=== PATIENT | female | born 1975 | race Hispanic/Latino ===

== ENCOUNTER 2018-07-27 13:43 | Outpatient (CLI) | payer OTHER | END 2018-07-27 13:44 | disposition home or self-care (01) | LOC: BICMAMMO 13:43 | PROVIDERS: ATTEND Obstetrics & Gynecology | DX: Z12.31 Encounter for screening mammogram for malignant neoplasm of breast (principal) | CPT/HCPCS: 77063; 77067 ==

== ENCOUNTER 2019-06-05 08:04 | Outpatient (CLI) | payer OTHER ==
--- NOTE | 2019-06-05 08:20 | RAD ---
XR Toe(s) Rt Min 2 View HISTORY: Right great toe injury COMPARISON: None. FINDINGS: There are no signs of fracture or dislocation. IMPRESSION: No evidence of fracture.
== END 2019-06-05 08:05 | disposition home or self-care (01) ==
LOC: BICRAD 08:04
PROVIDERS: ATTEND Nurse Practitioner Family
DX: S99.921A Unspecified injury of right foot, initial encounter (principal)

== ENCOUNTER 2019-09-07 12:12 | Outpatient (CLI) | payer OTHER ==
--- NOTE | 2019-09-13 13:27 | MMO ---
Bilateral MAMMO Bilat Screen [facility]. CLINICAL HISTORY: Patient is 44 years old and is seen for screening. The patient has no family history of breast cancer. The patient has no personal history of cancer. VIEWS: The views performed were: bilateral craniocaudal with tomosynthesis and bilateral mediolateral oblique with tomosynthesis. FILMS COMPARED: The present examination has been compared to prior imaging studies performed at [facility] on 09/02/2016, and at [facility] on 07/27/2018. This study has been interpreted with the assistance of computer-aided detection. MAMMOGRAM FINDINGS: The breasts are heterogeneously dense, which could obscure a lesion on mammography. There are no suspicious masses, suspicious calcifications, or new areas of architectural distortion. IMPRESSION: THERE IS NO MAMMOGRAPHIC EVIDENCE OF MALIGNANCY. A ROUTINE FOLLOW-UP MAMMOGRAM IN 1 YEAR IS RECOMMENDED. THE RESULTS OF THIS EXAM WERE SENT TO THE PATIENT. ACR BI-RADS Category 1 - Negative MAMMOGRAPHY NOTE: 1. A negative mammogram report should not delay a biopsy if a dominant of clinically suspicious mass is present. 2. Approximately 10% to 15% of breast cancers are not detected by mammography. 3. Adenosis and dense breasts may obscure an underlying neoplasm. Reported by: AVELINO FRENCH MD Electonically Signed: [id number]
== END 2019-09-07 12:13 | disposition home or self-care (01) ==
LOC: BICMAMMO 12:12
PROVIDERS: ATTEND Obstetrics & Gynecology
DX: Z12.31 Encounter for screening mammogram for malignant neoplasm of breast (principal)
CPT/HCPCS: 77063; 77067

== ENCOUNTER 2020-09-25 15:34 | Outpatient (CLI) | payer OTHER ==
--- NOTE | 2020-09-25 16:15 | MMO ---
Bilateral MAMMO Bilat Screen [facility]. CLINICAL HISTORY: Patient is 45 years old and is seen for screening. The patient has no family history of breast cancer. The patient has no personal history of cancer. VIEWS: The views performed were: bilateral exaggerated craniocaudal; bilateral craniocaudal with tomosynthesis; bilateral mediolateral oblique with tomosynthesis; and left craniocaudal. FILMS COMPARED: The present examination has been compared to prior imaging studies performed at [facility] on 09/02/2016, and at [facility] on 07/27/2018 and 09/07/2019. This study has been interpreted with the assistance of computer-aided detection. MAMMOGRAM FINDINGS: The breasts are heterogeneously dense, which could obscure a lesion on mammography. There are no suspicious masses, suspicious calcifications, or new areas of architectural distortion. IMPRESSION: THERE IS NO MAMMOGRAPHIC EVIDENCE OF MALIGNANCY. A ROUTINE FOLLOW-UP MAMMOGRAM IN 1 YEAR IS RECOMMENDED. THE RESULTS OF THIS EXAM WERE SENT TO THE PATIENT. ACR BI-RADS Category 1 - Negative MAMMOGRAPHY NOTE: 1. A negative mammogram report should not delay a biopsy if a dominant of clinically suspicious mass is present. 2. Approximately 10% to 15% of breast cancers are not detected by mammography. 3. Adenosis and dense breasts may obscure an underlying neoplasm. Reported by: AVELINO FRENCH MD Electonically Signed: [id number]
== END 2020-09-25 15:35 | disposition home or self-care (01) ==
LOC: BICMAMMO 15:34
PROVIDERS: ATTEND Obstetrics & Gynecology
DX: Z12.31 Encounter for screening mammogram for malignant neoplasm of breast (principal)
CPT/HCPCS: 77063; 77067

== ENCOUNTER 2021-06-10 14:39 | Outpatient (CLI) | payer OTHER | END 2021-06-10 14:40 | disposition home or self-care (01) | LOC: DTY/OP 14:39 | PROVIDERS: ATTEND Surgery | DX: E66.01 Morbid (severe) obesity due to excess calories (principal) | CPT/HCPCS: 97802 ==

== ENCOUNTER 2021-06-12 13:36 | Outpatient (CLI) | payer OTHER | END 2021-06-12 13:37 | disposition home or self-care (01) | LOC: DTY/OP 13:36 | PROVIDERS: ATTEND Surgery | DX: E66.01 Morbid (severe) obesity due to excess calories (principal) | CPT/HCPCS: 97802 ==

== ENCOUNTER 2021-06-15 09:51 | Outpatient (CLI) | payer OTHER | END 2021-06-15 09:52 | disposition home or self-care (01) | LOC: DTY/OP 09:51 | PROVIDERS: ATTEND Surgery | DX: E66.01 Morbid (severe) obesity due to excess calories (principal) | CPT/HCPCS: 97802 ==

== ENCOUNTER 2021-06-17 11:54 | Outpatient (CLI) | payer OTHER | END 2021-06-17 11:55 | disposition home or self-care (01) | LOC: DTY/OP 11:54 | PROVIDERS: ATTEND Surgery | DX: E66.01 Morbid (severe) obesity due to excess calories (principal); Z68.37 Body mass index [BMI] 37.0-37.9, adult | CPT/HCPCS: 97802 ==

== ENCOUNTER 2021-06-19 14:13 | Outpatient (CLI) | payer OTHER | END 2021-06-19 14:14 | disposition home or self-care (01) | LOC: DTY/OP 14:13 | PROVIDERS: ATTEND Surgery | DX: E66.01 Morbid (severe) obesity due to excess calories (principal) | CPT/HCPCS: 97802 ==

== ENCOUNTER 2021-06-22 12:00 | Outpatient (CLI) | payer OTHER | END 2021-06-22 12:01 | disposition home or self-care (01) | LOC: DTY/OP 12:00 | PROVIDERS: ATTEND Surgery | DX: E66.01 Morbid (severe) obesity due to excess calories (principal) | CPT/HCPCS: 97802 ==

== ENCOUNTER 2021-06-24 11:57 | Outpatient (CLI) | payer OTHER | END 2021-06-24 11:58 | disposition home or self-care (01) | LOC: DTY/OP 11:57 | PROVIDERS: ATTEND Surgery | DX: E66.01 Morbid (severe) obesity due to excess calories (principal) | CPT/HCPCS: 97802 ==

== ENCOUNTER 2021-06-29 12:01 | Outpatient (CLI) | payer OTHER | END 2021-06-29 12:02 | disposition home or self-care (01) | LOC: DTY/OP 12:01 | PROVIDERS: ATTEND Surgery | DX: E66.01 Morbid (severe) obesity due to excess calories (principal) | CPT/HCPCS: 97802 ==

== ENCOUNTER 2021-07-01 15:35 | Outpatient (CLI) | payer OTHER | END 2021-07-01 15:36 | disposition home or self-care (01) | LOC: DTY/OP 15:35 | PROVIDERS: ATTEND Surgery | DX: E66.01 Morbid (severe) obesity due to excess calories (principal) | CPT/HCPCS: 97802 ==

== ENCOUNTER 2021-07-03 12:01 | Outpatient (CLI) | payer OTHER | END 2021-07-03 12:02 | disposition home or self-care (01) | LOC: DTY/OP 12:01 | PROVIDERS: ATTEND Surgery | DX: E66.01 Morbid (severe) obesity due to excess calories (principal) | CPT/HCPCS: 97802 ==

== ENCOUNTER 2021-07-06 12:08 | Outpatient (CLI) | payer OTHER | END 2021-07-06 12:09 | disposition home or self-care (01) | LOC: DTY/OP 12:08 | PROVIDERS: ATTEND Surgery | DX: E66.01 Morbid (severe) obesity due to excess calories (principal) | CPT/HCPCS: 97802 ==

== ENCOUNTER 2021-07-08 12:04 | Outpatient (CLI) | payer OTHER | END 2021-07-08 12:05 | disposition home or self-care (01) | LOC: DTY/OP 12:04 | PROVIDERS: ATTEND Surgery | DX: E66.01 Morbid (severe) obesity due to excess calories (principal); Z68.37 Body mass index [BMI] 37.0-37.9, adult | CPT/HCPCS: 97802 ==

== ENCOUNTER 2021-07-27 17:34 | Outpatient (CLI) | payer OTHER ==
[2021-07-27 18:56] LABS: #Basophils 0.1 10x3/uL (0.0-0.2); #Eosinphils 0.3 10x3/uL (0.0-0.5); #Monocytes 0.9 10x3/uL (0.0-1.1); #Neutrophils 7.3 10x3/uL (1.5-8.4); %Basophils 0.7 % (0.0-2.0); %Eosinophils 2.5 % (0.0-6.0); %Lymphocytes 35.4 % (18.0-47.0); %Monocytes 6.9 % (0.0-10.0); %Neutrophils 54.1 % (40.0-75.0); Hemoglobin 13.9 g/dL (12.0-15.5); Mean Corpuscular HGB CONC 33.1 g/dL (32.0-36.0); Mean Corpuscular Hemoglobin 32.6 pg (27.0-33.0); Mean Corpuscular Volume 98.4 fl (81.6-98.3); Mean Platelet Volume 10.8 fl (7.4-10.4); Platelet Count 429 10x3/uL (150-450); RBC Distribution Width 12.7 % (11.5-14.5); Red Blood Cell (RBC) Count 4.27 10x6/uL (3.90-5.03); White Blood Cell (WBC) Count 13.4 10x3/uL (3.5-10.5)
[2021-07-27 19:24] LABS: ALT (SGPT) 42 U/L (8-55); AST (SGOT) 44 U/L (5-34); Albumin 4.7 g/dL (3.5-5.0); Alkaline Phosphatase 97 U/L (40-110); Anion Gap 13 mmol/L (10-20); BUN (Urea Nitrogen) 13 mg/dL (7.0-18.7); Calc. Creatinine Clearance 0 mL/min (70-130); Calcium 9.6 mg/dL (7.8-10.44); Carbon Dioxide 26 mmol/L (22-29); Chloride 100 mmol/L (98-107); Globulin 3.3 g/dL (2.4-3.5); Glucose 95 mg/dL (70-105); Potassium 3.3 mmol/L (3.5-5.1); Sodium 136 mmol/L (136-145)
[2021-07-28 12:40] LABS: Hemoglobin A1c 5.4 % (4.0-6.0)
[2021-07-29 13:32] LABS: SARS-CoV-2 PCR by NAA DETECTED (NotDetected)
== END 2021-07-27 17:35 | disposition home or self-care (01) ==
LOC: LABBT 17:34
PROVIDERS: ATTEND Surgery
DX: Z01.818 Encounter for other preprocedural examination (principal); Z20.822 Contact with and (suspected) exposure to COVID-19; E66.01 Morbid (severe) obesity due to excess calories
CPT/HCPCS: 71046; 80053; 83036; 85025; 93005; 93010; U0003; U0005

== ENCOUNTER 2021-07-27 17:45 | Inpatient (IN) | payer BC, OTHER ==
[2021-07-27 16:03] VITALS: BMI 36.7
[2021-08-27] MEDS ORDERED: HYDROmorphone 2 MG/ML VIAL ONE (06:19)
[2021-08-27] MEDS ORDERED: Midazolam HCl 2 mg/2 ml Vial ONE (06:19)
[2021-08-27] MEDS ORDERED: Phenylephrine 10 MG/ML VIAL ONE (06:19)
[2021-08-27] MEDS ORDERED: Sodium Chloride 0.9% 10 ML ONE (06:19)
[2021-08-27] MEDS ORDERED: Fentanyl 100 MCG/2 ML VIAL ONE ×3 (06:19→10:26)
[2021-08-27] MEDS ORDERED: Xylocaine 1% w/ Epi 1:100K 10 ML VIAL ONE (06:35)
[2021-08-27] MEDS ORDERED: Bupivacaine PF 0.5% 30 ML VIAL ONE (06:35)
[2021-08-27] MEDS ORDERED: Heparin 5,000 UNITS/ML VIAL ONE (06:50)
[2021-08-27] MEDS ORDERED: Bupivacaine 0.25% HCL 30 ML VIAL ONE (07:05)
[2021-08-27] MEDS ORDERED: Famotidine/PF 20 mg/2ml Vial ONE (07:12)
[2021-08-27] MEDS ORDERED: Lidocaine 1% MPF 2 ML VIAL ONE (07:20)
[2021-08-27] MEDS ORDERED: ceFAZolin 2 GM/Dextrose 50 ML IVPB ONE (07:25)
[2021-08-27] MEDS ORDERED: Glycopyrrolate 0.2 MG/ML 5 ML SYRINGE ONE (07:43)
[2021-08-27] MEDS ORDERED: Metoclopramide HCl 10 MG/2 ML VIAL ONE (07:43)
[2021-08-27] MEDS ORDERED: Dexamethasone 20 MG/5 ML VIAL ONE (07:43)
[2021-08-27] MEDS ORDERED: Ketorolac Tromethamine 30 MG/ML VIAL ONE (07:43)
[2021-08-27] MEDS ORDERED: PHENYLEPHRINE-NS 100 MCG/ML 10 ML SYRINGE ONE (07:43)
[2021-08-27] MEDS ORDERED: diphenhydrAMINE 50 MG/ML VIAL ONE (07:43)
[2021-08-27] MEDS ORDERED: PROPOFOL 200 MG/20 ML VIAL ONE (07:43)
[2021-08-27] MEDS ORDERED: Rocuronium Bromide 10 MG/ML (10ML VIAL) ONE (07:43)
[2021-08-27] MEDS ORDERED: Lidocaine 1% PF 5 ML VIAL ONE (07:43)
[2021-08-27] MEDS ORDERED: Ondansetron PF 4 MG/2 ML Vial ONE (07:43)
[2021-08-27] MEDS ORDERED: diphenhydrAMINE 50 MG/ML VIAL IVP PRN (09:02)
[2021-08-27] MEDS ORDERED: Dextrose 5% in Water 1,000 ML IV PRN (09:02)
[2021-08-27] MEDS ORDERED: Hydrocodone-Acetamin 15 ML UDCUP PO PRN (09:02)
[2021-08-27] MEDS ORDERED: Promethazine HCl 25 MG/ML VIAL IM PRN ×2 (09:02→09:12)
[2021-08-27] MEDS ORDERED: hydrALAZINE 20 MG/ML VIAL SLOW IVP PRN (09:02)
[2021-08-27] MEDS ORDERED: Ondansetron PF 4 MG/2 ML Vial IVP PRN (09:02)
[2021-08-27] MEDS ORDERED: Dextrose 50% Abboject 50 ML SYRINGE SLOW IVP PRN (09:02)
[2021-08-27] MEDS ORDERED: HYDROmorphone 2 MG/ML VIAL SLOW IVP PRN (09:12)
[2021-08-27] MEDS ORDERED: Promethazine HCl 25 MG/ML VIAL IVPB PRN (09:12)
[2021-08-27] MEDS ORDERED: Ondansetron HCl/PF 4 MG/2 ML Vial IVP PRN (09:12)
[2021-08-27] MEDS ORDERED: Meperidine HCl/PF 25 MG/ML VIAL SLOW IVP PRN (09:12)
[2021-08-27] MEDS ORDERED: Morphine Sulfate 100 MG in Dextrose 5% in Water 98 ML IV SCH (09:30)
[2021-08-27] MEDS ORDERED: diphenhydrAMINE 25 MG CAP PO PRN (09:30)
[2021-08-27] MEDS ORDERED: diphenhydrAMINE 50 MG/ML VIAL IM/IV PRN (09:30)
[2021-08-27] MEDS ORDERED: Naloxone HCl 0.4 mg/ml Vial IV PRN (09:30)
[2021-08-27] MEDS ORDERED: Promethazine HCl 25 MG/ML VIAL ONE (10:13)
[2021-08-27] MEDS ORDERED: Ketorolac Tromethamine 30 MG/ML VIAL IVP SCH (12:00)
[2021-08-27] MEDS: D5 1/2 NS w/20 mEq KCL 1,000 ML IV SCH ×3 (14:34→20:24)
[2021-08-27] MEDS: ceFAZolin 2 GM/Dextrose 50 ML 2 GM in Premix Bag 1 BAG IVPB SCH ×2 (14:50→20:25)
[2021-08-27] MEDS: Ondansetron PF 4 MG/2 ML Vial IVP PRN (16:37)
[2021-08-28] MEDS ORDERED: Hydrocodone-Acetamin 15 ML UDCUP PO PRN (05:50)
[2021-08-28 05:59] VITALS: TEMP 98.6
[2021-08-28 06:06] LABS: Hemoglobin 13.7 g/dL (12.0-16.0); Mean Corpuscular HGB CONC 33.1 g/dL (32.0-36.0); Mean Corpuscular Hemoglobin 33.2 pg (27.0-31.0); Platelet Count 340 thou/uL (130-400); RBC Distribution Width 11.3 % (11.5-14.5); Red Blood Cell (RBC) Count 4.12 mill/uL (4.20-5.40); White Blood Cell (WBC) Count 21.5 thou/uL (4.8-10.8)
[2021-08-28 06:07] LABS: Mean Platelet Volume 7.6 fL (7.4-10.4)
[2021-08-28 06:21] LABS: Anion Gap 15 mmol/L (10-20); BUN (Urea Nitrogen) 7 mg/dL (7.0-18.7); Calc. Creatinine Clearance 145 mL/min (70-130); Calcium 8.5 mg/dL (7.8-10.44); Carbon Dioxide 21 mmol/L (22-29); Chloride 103 mmol/L (98-107); Glucose 104 mg/dL (70-105); Potassium 3.4 mmol/L (3.5-5.1); Sodium 136 mmol/L (136-145)
[2021-08-28 06:26] LABS: Band 4 % (5-11); Lymphocytes 19 % (21-51); MDiff Complete? YES; Monocytes 7 % (0-10); Neutrophil 68 % (42-75); Reactive Lymphocytes 2 % (0-10)
[2021-08-28 08:06] VITALS: BP 120/77
[2021-08-28] MEDS: Ondansetron PF 4 MG/2 ML Vial IVP PRN (08:17)
[2021-08-28] MEDS: D5 1/2 NS w/20 mEq KCL 1,000 ML IV SCH (08:23)
[2021-08-28] MEDS ORDERED: Enoxaparin Sodium 40 MG/0.4 ML SYRINGE SC SCH (09:00)
[2021-08-28] MEDS ORDERED: Pantoprazole 40 MG VIAL IVP SCH (09:00)
== END 2021-08-28 11:20 | disposition home or self-care (01) | DRG 621 ==
LOC: SURG A 08-27 06:04 → SJJU 08-27 12:44
PROVIDERS: ADMIT Surgery; ATTEND Surgery
PROC: 0DB64Z3 Excision of Stomach, Percutaneous Endoscopic Approach, Vertical (ICD-10-PCS; principal; 2021-08-27)
DX: E66.01 Morbid (severe) obesity due to excess calories (principal); K66.0 Peritoneal adhesions (postprocedural) (postinfection); Z98.51 Tubal ligation status; Z90.49 Acquired absence of other specified parts of digestive tract; Z90.710 Acquired absence of both cervix and uterus; Z79.899 Other long term (current) drug therapy; Z82.3 Family history of stroke; Z83.3 Family history of diabetes mellitus; Z82.49 Family history of ischemic heart disease and other diseases of the circulatory system; Z68.35 Body mass index [BMI] 35.0-35.9, adult
CPT/HCPCS: 36415; 80048; 85025; 88307; 88312; C9113; J0690; J1100; J1170; J1200; J1644; J1650; J1885; J2250; J2370; J2405; J2550; J2704; J2765; J3010; J3480; S0020; S0028

== ENCOUNTER 2022-05-31 13:40 | Outpatient (CLI) | payer BC | END 2022-05-31 13:41 | disposition home or self-care (01) | LOC: BICMAMMO 13:40 | PROVIDERS: ATTEND Obstetrics & Gynecology | DX: Z12.31 Encounter for screening mammogram for malignant neoplasm of breast (principal) | CPT/HCPCS: 77063; 77067 ==

== ENCOUNTER 2023-06-03 07:55 | Outpatient (CLI) | payer BC | END 2023-06-03 07:56 | disposition home or self-care (01) | LOC: BICMAMMO 07:55 | PROVIDERS: ATTEND Obstetrics & Gynecology | DX: Z12.31 Encounter for screening mammogram for malignant neoplasm of breast (principal) | CPT/HCPCS: 77063; 77067 ==